=== PATIENT | male | born 1970 | race Asian ===

== ENCOUNTER 2021-07-25 08:42 | Emergency (ER) | payer OTHER, SELFPAY ==
--- NOTE | 2021-07-25 09:10 | XRR_ITS ---
PROCEDURE INFORMATION: Exam: XR Chest Exam date and time: 07/25/2021 9:10 AM Age: 50 years old Clinical indication: Patient HX: Covid symptoms for 3 days TECHNIQUE: Imaging protocol: XR of the chest. Views: 1 view. COMPARISON: No relevant prior studies available. FINDINGS: Lungs: Unremarkable. No consolidation. Pleural spaces: Unremarkable. No pleural effusion. No pneumothorax. Heart/Mediastinum: Unremarkable. No cardiomegaly. Bones/joints: Unremarkable. XR/XR chest 1V portable [id number] IMPRESSION: No acute findings.
[2021-07-25 09:27] VITALS: BP 106/69; PULSE 69; RESP 18; TEMP 36.8; O2SAT 97; BMI 23.9
--- NOTE | 2021-07-25 13:13 | W.ED.GENADLT ---
HPI - General Adult General: Chief complaint: General Medical Stated complaint: Covid sx:chills;sakes;cough;h/a,cp Time Seen by Provider: 07/25/21 12:36 Source: patient Mode of arrival: ambulatory Limitations: no limitations History of Present Illness: HPI narrative: Patient is a 50-year-old male who presents to ED today along with his for COVID-like symptoms. His tested positive for COVID 3 days ago. Patient states yesterday he began having body aches, subjective fevers, and chills. He states today he does feel slightly better. He does not complain of shortness of breath, chest pain, or cough. He has no significant PMH. Onset (ago): day(s) Severity: mild Relieving factors: none Exacerbating factors: none Associated symptoms: Reports no associated symptoms; Deny chest pain, dyspnea, headache(s), malaise, nausea, rash or vomiting Treatments prior to arrival: none Review of Systems Const: Reports: fever(s) and chills; Denies: change in appetite, change in weight, fatigue or malaise Eyes: Denies: change in vision or blurry vision ENMT: Denies: throat pain, odynophagia, nasal discharge, nasal congestion, post nasal drip or sinus pain Card: Denies: chest pain Resp: Denies: dyspnea GI: Denies: abdominal pain, nausea, vomiting or diarrhea : Denies: flank pain or dysuria Musc: Denies: neck pain, back pain, extremity pain or joint pain Skin/Breast: Denies: rash Neuro: Denies: headache(s), numbness in extremities, weakness in extremities, sensory changes or dizziness Physical Exam Const: COMMON NORMALS: no acute distress, average body habitus, patient oriented x3, no limitations, healthy appearing, alert and well nourished GENERAL APPEARANCE: cooperative ORIENTATION/CONSCIOUSNESS: Yes awake, Yes oriented to person, Yes oriented to place and Yes oriented to time HENMT: COMMON NORMALS: normocephalic and atraumatic HEAD & SCALP: normocephalic and atraumatic Resp: COMMON NORMALS: normal respiratory effort and clear to auscultation bilaterally AUSCULTATION: clear to auscultation bilaterally Cardio: COMMON NORMALS: regular rate and regular rhythm RATE: regular rate RHYTHM: regular rhythm Neuro: JANET COMA SCALE: document GCS findings Janet coma scale eye opening: Spontaneous Janet coma scale verbal response: Orientated [place] coma scale motor response: Obey commands Janet coma scale total score: 15 COMMON NORMALS: patient oriented x3 SENSORIUM/ORIENTATION: Yes alert, Yes oriented to person, Yes oriented to place and Yes oriented to time Course Vital Signs: Vital signs: Vital Signs Temperature 98.3 F 07/25/21 13:33 Pulse Rate 61 07/25/21 13:33 Respiratory Rate 18 07/25/21 13:33 Blood Pressure 107/69 07/25/21 13:33 Pulse Oximetry 99 07/25/21 13:33 MDM - General Adult MDM Narrative: Medical decision making narrative: Patient is non-ill and nontoxic appearing. His vital signs are perfect. Rapid COVID testing obtained but was canceled secondary to results showing INVALID x 2. He does not qualify for MCA. He lives with individual with positive COVID test on file. He will be treated for suspected COVID infection with oral dexamethasone. Return to ED precautions given. Imaging Data^: CXR: Radiologist's impression: [address] [id number] ReportSigned Patient: Elvira Anderson #: [id number]: 1970Acct#:[id number]/Sex: 50 / MADM Date: 07/25/21Loc: ERRoom/Bed:Attending Dr: Ordering Provider/Ordering MD: Fiona Inman Date of Service: 07/25/21 Procedure(s): XR chest 1V portable [id number] Accession Number(s): [id number] Report Number: [id number] PROCEDURE INFORMATION: Exam: XR Chest Exam date and time: 07/25/2021 9:10 AM Age: 50 years old Clinical indication: Patient HX: Covid symptoms for 3 days TECHNIQUE: Imaging protocol: XR of the chest. Views: 1 view. COMPARISON: No relevant prior studies available. FINDINGS: Lungs: Unremarkable. No consolidation. Pleural spaces: Unremarkable. No pleural effusion. No pneumothorax. Heart/Mediastinum: Unremarkable. No cardiomegaly. Bones/joints: Unremarkable. XR/XR chest 1V portable [id number] IMPRESSION: No acute findings. Dictated By:Jairon Rodriguez By:Jairon Rodriguez Date/Time:07/25/21 [id number]/ 1004 Discharge Plan Discharge Patient Disposition: Home Clinical Impression: Suspected 2019-nCoV infection Condition: Stable Prescriptions: New dexamethasone 6 mg tablet 6 mg PO DAILY Qty: 6 RF: 0 Discharge Orders: Discharge ED (Routine); Ordered 07/25/21 Ordered By: Fiona Inman Coding Level of Care Code ED Commercial Sales Manager for Billie Regan
[2021-07-25 13:33] VITALS: BP 107/69; PULSE 61; RESP 18; TEMP 36.8; O2SAT 99
== END 2021-07-25 13:35 | disposition home or self-care (01) ==
PROVIDERS: Emergency Provider Physician Assistant
DX: Z20.822 Contact with and (suspected) exposure to COVID-19 (principal)
CPT/HCPCS: 71045; 99281